=== PATIENT | female | born 1990 | race Caucasian/White ===

== ENCOUNTER 2018-08-06 09:47 | Emergency (ER) | payer SELFPAY ==
[2018-08-06 10:15] LABS: Bilirubin Negative (Negative); Blood, Urine Negative (Negative); Clarity Slightly Cloudy (Clear); Glucose, Urine (Dipstick) Negative (Negative); Leukocyte Negative (Negative); Nitrite Positive (Negative); Protein, Urine (Dipstick) Negative (Neg-Trace); Specific Gravity, Urine 1.025 (1.005-1.030)
[2018-08-06 10:16] LABS: Pregnancy Test - Urine (BHCG) Negative (Negative); Pregu Control Background? CLEAR/WHITE (CLR/WHITE); Pregu Control Bar Appear? YES (CONTROL BAR); Specific Gravity 1.025 (1.002-1.036)
[2018-08-06 10:20] LABS: RBC/HPF None Seen HPF (0-3); Squamous Epithelial 0-3 HPF (0-3)
[2018-08-06 10:21] LABS: Bacteria/HPF 3+ HPF (None Seen)
--- NOTE | 2018-08-06 14:54 | ULT ---
PELVIC ULTRASOUND WITH ENDOVAGINAL IMAGING: Date: 08-06-18 Technique: Ultrasonography of the pelvis was performed for evaluation of pelvic pain. Both transabdom inal and endovaginal imaging was required. FINDINGS: The uterus measures 6.7 x 3.7 x 4.4 cm. No uterine mass was seen. The endometrium is slightly thick a t about 11 mm. Right ovary is 4.0 cm in length and the left is 4.4 cm. There are several cysts and small follicles s een in each ovary, a bit more than usual. Many are peripheral. This may be a case of polycystic ovari an disease. There is a complex 2 cm cyst in the right ovary that has a little bit of debris in it. Th e largest cyst seen in the left ovary was 2.3 cm in size. Blood flow was present in each ovary. There is no substantial free fluid. IMPRESSION: Possibly polycystic ovaries with at least one dominant 2 cm cyst in each ovary. The one on the right has some debris in it. POS: HOME
== END 2018-08-06 11:15 | disposition home or self-care (01) ==
LOC: BURERS 09:47
DX: N30.00 Acute cystitis without hematuria (principal); N83.202 Unspecified ovarian cyst, left side; N83.201 Unspecified ovarian cyst, right side; H01.006 Unspecified blepharitis left eye, unspecified eyelid; F32.9 Major depressive disorder, single episode, unspecified; F41.9 Anxiety disorder, unspecified; F17.210 Nicotine dependence, cigarettes, uncomplicated
CPT/HCPCS: 76856; 81003; 81015; 81025

== ENCOUNTER 2021-01-01 12:57 | Emergency (ER) | payer OTHER, SELFPAY | END 2021-01-01 14:35 | disposition left against medical advice (07) | LOC: BURERS 12:59 | DX: Z53.21 Procedure and treatment not carried out due to patient leaving prior to being seen by health care provider (principal) ==

== ENCOUNTER 2021-01-01 14:38 | Emergency (ER) | payer SELFPAY ==
[2021-01-02 14:24] LABS: SARS-CoV-2 PCR by NAA Not Detected (NotDetected)
== END 2021-01-01 15:55 | disposition home or self-care (01) ==
LOC: BURERS 14:38
DX: R19.7 Diarrhea, unspecified (principal); R53.81 Other malaise; R05 Cough; Z20.822 Contact with and (suspected) exposure to COVID-19; F17.210 Nicotine dependence, cigarettes, uncomplicated
CPT/HCPCS: 87635; 87804; 99283; U0003; U0005

== ENCOUNTER 2021-09-12 08:45 | Emergency (ER) | payer SELFPAY ==
[2021-09-12 09:33] LABS: #Basophils 0.1 thou/uL (0.0-0.2); #Eosinphils 0.1 thou/uL (0.0-0.7); #Monocytes 0.6 thou/uL (0.11-0.59); #Neutrophils 4.4 thou/uL (1.40-6.50); %Basophils 1.3 % (0.0-1.0); %Eosinophils 0.7 % (0.0-10.0); %Lymphocytes 28.4 % (21.0-51.0); %Monocytes 7.8 % (0.0-10.0); %Neutrophils 61.8 % (42.0-75.0); Hemoglobin 14.5 g/dL (12.0-16.0); Mean Corpuscular HGB CONC 32.5 g/dL (32.0-36.0); Mean Corpuscular Hemoglobin 29.3 pg (27.0-31.0); Mean Corpuscular Volume 90.1 fL (78.0-98.0); Platelet Count 447 thou/uL (130-400); RBC Distribution Width 12.2 % (11.5-14.5); Red Blood Cell (RBC) Count 4.96 mill/uL (4.20-5.40); White Blood Cell (WBC) Count 7.1 thou/uL (4.8-10.8)
[2021-09-12] MEDS ORDERED: Ketorolac Tromethamine 30 MG/ML VIAL ONE (09:42)
[2021-09-12 09:44] LABS: ALT (SGPT) 25 U/L (8-55); AST (SGOT) 19 U/L (5-34); Albumin 4.3 g/dL (3.5-5.0); Alkaline Phosphatase 70 U/L (40-110); Anion Gap 13 mmol/L (10-20); BUN (Urea Nitrogen) 6 mg/dL (7.0-18.7); Bilirubin, Total 0.6 mg/dL (0.2-1.2); Calc. Creatinine Clearance 0 mL/min (70-130); Calcium 10.2 mg/dL (7.8-10.44); Carbon Dioxide 25 mmol/L (22-29); Chloride 105 mmol/L (98-107); Globulin 3.5 g/dL (2.4-3.5); Glucose 70 mg/dL (70-105); Protein, Total 7.8 g/dL (6.0-8.3); Sodium 139 mmol/L (136-145)
[2021-09-12 10:01] LABS: Bilirubin Negative (Negative); Blood, Urine Negative (Negative); Clarity Clear (Clear); Glucose, Urine (Dipstick) Negative (Negative); Ketone, Urine Negative (Negative); Leukocyte Negative (Negative); Nitrite Negative (Negative); Protein, Urine (Dipstick) Negative (Neg-Trace); Urobilinogen 0.2 mg/dL (Less than 2)
[2021-09-12 10:05] LABS: Pregnancy Test - Urine (BHCG) Negative (Negative); Pregu Control Background? CLEAR/WHITE (CLR/WHITE); Pregu Control Bar Appear? YES (CONTROL BAR)
== END 2021-09-12 10:26 | disposition home or self-care (01) ==
LOC: BURERS 08:45
DX: S29.012A Strain of muscle and tendon of back wall of thorax, initial encounter (principal); F17.210 Nicotine dependence, cigarettes, uncomplicated; X58.XXXA Exposure to other specified factors, initial encounter
CPT/HCPCS: 80053; 81003; 81025; 85025; 96374; 99406; J1885